=== PATIENT | male | born 1960 | race Caucasian/White ===

== ENCOUNTER 2018-05-16 10:25 | Emergency (ER) | payer SELFPAY ==
[~2018-05-16] VITALS: Ht 177.8 cm; Wt 87.1 kg
[2018-05-16 10:38] VITALS: BP 132/70
--- NOTE | 2018-05-16 11:15 | PHYS DOC ---
Past History Past Medical History: Diabetes Past Surgical History: No Surgical History Alcohol Use: None Drug Use: None Adult General Chief Complaint Chief Complaint: UPPER EXTREMITY INJURY HPI HPI 58-year-old male presents with right shoulder and right elbow pain. 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 He was walking past a door when one of the patient's jumped into the metal door and it slammed into the patient's shoulder and forearm. He does not believe that they're broken, but his administrators asked him to get checked out. He does have pain in the lateral shoulder and elbow region. His range of motion is intact. He denies any other injuries. Review of Systems Review of Systems Constitutional: Denies fever or chills [] Eyes: Denies change in visual acuity, redness, or eye pain [] HENT: Denies nasal congestion or sore throat [] Respiratory: Denies cough or shortness of breath [] Cardiovascular: No additional information not addressed in HPI [] GI: Denies abdominal pain, nausea, vomiting, bloody stools or diarrhea [] : Denies dysuria or hematuria [] Musculoskeletal: Right shoulder and right elbow pain[] Integument: Denies rash or skin lesions [] Neurologic: Denies headache, focal weakness or sensory changes [] Endocrine: Denies polyuria or polydipsia [] All other systems were reviewed and found to be within normal limits, except as documented in this note. Allergies Allergies Allergies Coded Allergies Type Severity Reaction Last Updated Verified ibuprofen Allergy Intermediate 05/16/18 Yes prednisone Allergy Mild 05/16/18 Yes Physical Exam Physical Exam Constitutional: Well developed, well nourished, no acute distress, non-toxic appearance. [] HENT: Normocephalic, atraumatic, bilateral external ears normal, oropharynx moist, no oral exudates, nose normal. [] Eyes: PERRLA, EOMI, conjunctiva normal, no discharge. [] Neck: Normal range of motion, no tenderness, supple, no stridor. [] Cardiovascular:Heart rate regular rhythm, no murmur [] Lungs & Thorax: Bilateral breath sounds clear to auscultation [] Abdomen: Bowel sounds normal, soft, no tenderness, no masses, no pulsatile masses. [] Skin: Warm, dry, no erythema, no rash. [] Back: No tenderness, no CVA tenderness. [] Extremities: Tenderness of the deltoid muscle and right forearm. Normal range of motion in the entire right upper extremity.[] Neurologic: Alert and oriented X 3, normal motor function, normal sensory function, no focal deficits noted. [] Psychologic: Affect normal, judgement normal, mood normal. [] Current Patient Data Vital Signs Vital Signs Date Time Temp Pulse Resp B/P (MAP) Pulse Ox O2 Delivery O2 Flow Rate FiO2 05/16/18 10:38 98.2 80 18 99 Room Air EKG EKG [] Radiology/Procedures Radiology/Procedures [] Impressions: Right elbow, 3 views, 05/16/2018: HISTORY: Elbow injury No fracture or dislocation is identified. There is no radiographic evidence of a significant joint effusion. Mild subcutaneous edema is present posteriorly. IMPRESSION: No acute bony abnormality is detected. Right shoulder, 3 views, 05/16/2018: No fracture or dislocation is identified. There is mild arthritic change at the AC joint. IMPRESSION: No acute bony abnormality is detected. Electronically signed by: Thomas John MD (05/16/2018 11:26 AM) [facility] DICTATED AND SIGNED BY: THOMAS JOHN MD DATE: 05/16/18 1125 CC: JOVON BASHIR DO; JEANNINE WARD MD ~ Course & Med Decision Making Course & Med Decision Making Pertinent Labs and Imaging studies reviewed. (See chart for details) Patient's x-rays are unremarkable. He has a contusion of the right shoulder and elbow region. I've advised anti-inflammatories for pain relief. He is stable for discharge at this time. [] Dragon Disclaimer Dragon Disclaimer This electronic medical record was generated, in whole or in part, using a voice recognition dictation system. Departure Departure: Impression: Primary Impression: Contusion of right shoulder region Additional Impression: Contusion of right elbow and forearm Disposition: 01 HOME, SELF-CARE Condition: STABLE Patient Instructions: Contusion, [id number] Additional Instructions: You can take ibuprofen 600 mg up to 3 times a day for pain for the next few days as needed. Problem Qualifiers JOVON BASHIR DO May 16, 2018 11:15
--- NOTE | 2018-05-16 11:30 | RAD ---
Right elbow, 3 views, 05/16/2018: HISTORY: Elbow injury No fracture or dislocation is identified. There is no radiographic evidence of a significant joint effusion. Mild subcutaneous edema is present posteriorly. IMPRESSION: No acute bony abnormality is detected. Right shoulder, 3 views, 05/16/2018: No fracture or dislocation is identified. There is mild arthritic change at the AC joint. IMPRESSION: No acute bony abnormality is detected. Electronically signed by: Thomas John MD (05/16/2018 11:26 AM) [facility]
== END 2018-05-16 11:16 | disposition home or self-care (01) ==
LOC: ER 10:25
DX: S40.011A Contusion of right shoulder, initial encounter (principal); S50.01XA Contusion of right elbow, initial encounter; Z88.6 Allergy status to analgesic agent; S50.11XA Contusion of right forearm, initial encounter; E11.9 Type 2 diabetes mellitus without complications; Z88.8 Allergy status to other drugs, medicaments and biological substances; W22.8XXA Striking against or struck by other objects, initial encounter; Y93.89 Activity, other specified; Y92.218 Other school as the place of occurrence of the external cause; Y99.0 Civilian activity done for income or pay
CPT/HCPCS: 73030; 73080; 99284